=== PATIENT | female | born 1960 | race African-American/Black ===

== ENCOUNTER 2020-06-24 19:58 | Inpatient (IN) | payer MEDICAID ==
[~2020-06-24] VITALS: Ht 162.6 cm; Wt 68.9 kg
[2020-06-24] MEDS ORDERED: KETOROLAC 30MG/ML VIAL IV STA (21:02)
[2020-06-24] MEDS ORDERED: SODIUM CHLORIDE 0.9% 1,000 ML IV ONE (21:02)
[2020-06-24] MEDS ORDERED: ONDANSETRON HCL 4MG/2ML INJ IV STA (21:02)
[2020-06-24 21:24] LABS: BASOPHILS % 0.5 % (0.0-2.0); EOSINOPHILS % 0.1 % (0.0-5.0); HEMATOCRIT. 36.9 % (36.0-48.0); HEMOGLOBIN. 11.7 g/dL (12.0-16.0); LYMPHOCYTES % 7.1 % (20.0-50.0); MEAN CORPUSCULAR HEMOGLOBIN 23.3 pg (28.0-32.0); MEAN CORPUSCULAR VOLUME 73.2 fL (81.0-99.0); MEAN PLATELET VOLUME 8.8 fl (7.4-10.4); MONOCYTES % 4.1 % (2.0-8.0); NEUTROPHILS % 88.2 % (40.0-76.0); PLATELET 223 x1000/uL (130-400); RED BLOOD CELL COUNT 5.03 mill/uL (4.2-5.4); RED CELL DISTRIBUTION WIDTH 14.9 % (11.6-14.6)
[2020-06-24 21:25] LABS: PROTHROMBIN TIME 10.1 sec (9.6-11.0)
[2020-06-24 21:26] LABS: CHLORIDE 107 mEq/L (98-107)
[2020-06-24] MEDS ORDERED: DOXYCYCLINE HYCLATE 100MG CAPSULE PO ONE (21:45)
[2020-06-24] MEDS ORDERED: CEFTRIAXONE 1 G PREMIX 50 ML IV ONE (21:45)
[2020-06-24 23:49] LABS: CLARITY URINE CLEAR (CLEAR); KETONES URINE NEGATIVE (NEGATIVE); LEUKOCYTE ESTERASE URINE 1+ (NEGATIVE); NITRITE URINE NEGATIVE (NEGATIVE); OCCULT BLOOD URINE TRACE (NEGATIVE); PH URINE 6.5 (4.5-8.0); PROTEIN URINE NEGATIVE (NEGATIVE); SPECIFIC GRAVITY URINE 1.007 (1.005-1.030); UROBILINOGEN URINE 0.2 E.U./dL (0.2-1.0)
[2020-06-24 23:50] LABS: COLOR URINE YELLOW (YELLOW)
[2020-06-25 03:10] VITALS: BP 132/66
[2020-06-25] MEDS ORDERED: CEFTRIAXONE 1 G PREMIX 50 ML IV SCH (04:45)
[2020-06-25] MEDS ORDERED: ACETAMINOPHEN 325MG TABLET PO PRN (04:45)
[2020-06-25] MEDS ORDERED: LOSA50TA41 PO (04:54)
[2020-06-25] MEDS ORDERED: HYDR-4135 PO (04:54)
[2020-06-25] MEDS ORDERED: HYDR100T26 PO (04:54)
[2020-06-25] MEDS: ENOXAPARIN 80MG/0.8ML SYR SUBCUT SCH ×2 (06:06→17:20)
[2020-06-25 07:38] LABS: CHLORIDE 109 mEq/L (98-107)
[2020-06-25 07:43] LABS: HEMATOCRIT 31.3 % (36.0-48.0); HEMOGLOBIN 10.1 g/dL (12.0-16.0); MEAN CORPUSCULAR HEMOGLOBIN 23.6 pg (28.0-32.0); MEAN CORPUSCULAR VOLUME 73.3 fL (81.0-99.0); PLATELET 195 x1000/uL (130-400); RED BLOOD CELL COUNT 4.27 mill/uL (4.2-5.4); RED CELL DISTRIBUTION WIDTH 14.3 % (11.6-14.6)
[2020-06-25 08:00] VITALS: BP 105/54
[2020-06-25] MEDS ORDERED: POTASSIUM CHLORIDE 20MEQ TABLET SR PO NR (08:00)
[2020-06-25] MEDS ORDERED: SODIUM CHLORIDE 0.9% 1,000 ML IV SCH (08:00)
[2020-06-25] MEDS: HYDRALAZINE HCL 100MG TABLET PO SCH (08:17)
[2020-06-25] MEDS: AZITHROMYCIN 500 MG TABLET PO SCH (08:17)
[2020-06-25] MEDS: LOSARTAN POTASSIUM 50 MG TABLET PO SCH ×2 (08:17→21:24)
[2020-06-25] MEDS: DEXAMETHASONE 2MG TABLET PO SCH (10:58)
[2020-06-25] MEDS: GUAIFENESIN 600MG ER TABLET PO SCH ×2 (10:58→21:24)
[2020-06-25 12:00] VITALS: BP 129/81
[2020-06-25 16:00] VITALS: BP 129/81
[2020-06-25 20:00] VITALS: BP 138/63
[2020-06-25] MEDS ORDERED: HYDRALAZINE HCL 50MG TABLET PO SCH (21:00)
[2020-06-25] MEDS ORDERED: CEFTRIAXONE 1,000 MG in DEXTROSE 5% WATER 50 ML IV SCH (21:00)
[2020-06-26] VITALS: BP 136/70
[2020-06-26 04:00] VITALS: BP 141/62
[2020-06-26] MEDS: ENOXAPARIN 80MG/0.8ML SYR SUBCUT SCH ×2 (05:26→17:26)
[2020-06-26 08:00] VITALS: BP 94/53
[2020-06-26] MEDS: HYDRALAZINE HCL 100MG TABLET PO SCH (08:29)
[2020-06-26] MEDS: DEXAMETHASONE 2MG TABLET PO SCH (08:30)
[2020-06-26] MEDS: GUAIFENESIN 600MG ER TABLET PO SCH (08:30)
[2020-06-26] MEDS: AZITHROMYCIN 500 MG TABLET PO SCH (08:30)
[2020-06-26] MEDS: LOSARTAN POTASSIUM 50 MG TABLET PO SCH (08:30)
[2020-06-26 12:00] VITALS: BP 138/61
[2020-06-26 16:00] VITALS: BP 134/55
[2020-06-26] MEDS ORDERED: AZIT250T12 MT (16:02)
[2020-06-26] MEDS ORDERED: P20 MT (16:02)
[2020-06-26 16:09] VITALS: BP 98/134
== END 2020-06-26 18:40 | disposition home or self-care (01) | DRG 720 ==
LOC: ER 19:58 → 7WST 06-25 00:27 → ENRESERV 06-25 02:46
PROVIDERS: ADMIT Internal Medicine; ATTEND Internal Medicine
DX: A41.9 Sepsis, unspecified organism (principal); J18.9 Pneumonia, unspecified organism; D72.810 Lymphocytopenia; E87.2 Acidosis; I10 Essential (primary) hypertension; I25.10 Atherosclerotic heart disease of native coronary artery without angina pectoris; Z20.828 Contact with and (suspected) exposure to other viral communicable diseases; J96.00 Acute respiratory failure, unspecified whether with hypoxia or hypercapnia; Z85.3 Personal history of malignant neoplasm of breast; Z90.11 Acquired absence of right breast and nipple; Z90.710 Acquired absence of both cervix and uterus
CPT/HCPCS: 36415; 71045; 80048; 80053; 81003; 82728; 83605; 83615; 83880; 84145; 84484; 85025; 85027; 85384; 86140; 87070; 87430; 87635; 93005; 93970; 96374; 99285; J0696; J1650; J1885; J2405; J7030; J7060; J8540